=== PATIENT | female | born 1985 | race African-American/Black ===

== ENCOUNTER 2016-06-15 23:42 | Emergency (ER) | payer OTHER ==
[2016-06-15 23:48] VITALS: BP 116/61; PULSE 81; TEMP 98.9; BMI 26.2
[2016-06-16] MEDS ORDERED: valACYclovir HCL 1000 MG TABLET PO ONE ×2 (00:12→00:19)
--- NOTE | 2016-06-16 00:13 | PDOC ---
History of Present Illness - General Chief Complaint: Oral Ulcers Stated Complaint: ORAL ULCERS/BODY ACHE Time Seen by Provider: 06/16/16 00:12 History Source: Patient Past History - Past Medical History Allergies/Adverse Reactions: Allergies Allergy/AdvReac Type Severity Reaction Status Date / Time amoxicillin Allergy Verified 06/15/16 23:46 Home Medications: Ambulatory Orders Valacyclovir HCl [Valtrex] 2,000 mg PO DAILY #2 tablet 06/16/16 Asthma: No Cancer: No Cardiac Disorders: No Diabetes: No HTN: No Seizures: No Thyroid Disease: No - Reproductive History (#): 3 Para: 1 Cervical CA: No Dysfunctional Uterine Bleeding: No Ectopic : No Endometrial CA: No Polycystic Ovaries: No Therapeutic (s) & number: No Tubal Ligation: No Spontaneous : 1 - Immunization History Td Vaccination: Yes TDAP Vaccination: Yes Immunization Up to Date: Yes - Psycho/Social/Smoking Cessation Hx Anxiety: No Suicidal Ideation: No Smoking Status: No Smoking History: Never smoked Have you smoked in the past 12 months: No Number of Cigarettes Smoked Daily: 0 'Breaking Loose' booklet given: 02/02/16 Hx Alcohol Use: No Drug/Substance Use Hx: No Substance Use Type: None, Alcohol Hx Substance Use Treatment: No *Physical Exam - Vital Signs Last Vital Signs Temp Pulse Resp BP Pulse Ox 98.9 F 81 18 116/61 100 06/15/16 23:47 06/15/16 23:47 06/15/16 23:47 06/15/16 23:47 06/15/16 23:47 *DC/Admit/Observation/Transfer Diagnosis at time of Disposition: Herpes zoster Qualifiers: Herpes zoster complications: without complications Qualified Code(s): B02.9 - Zoster without complications - Discharge Dispostion Disposition: HOME Condition at time of disposition: Stable - Prescriptions Prescriptions: Valacyclovir HCl [Valtrex] 2,000 mg PO DAILY #2 tablet - Referrals Referrals: Nancy Hitchcock MD [Primary Care Provider] - - Patient Instructions Printed Discharge Instructions: DI for Cold Sores Additional Instructions: Take the antibiotics as prescribe Increase fluids Follow up with your physician Return to the ER for severe/persistent/worsening symptoms
== END 2016-06-16 00:29 | disposition home or self-care (01) ==
LOC: JERFT 23:42
DX: B00.1 Herpesviral vesicular dermatitis (principal)
CPT/HCPCS: 99281-25

== ENCOUNTER 2016-08-30 12:15 | Emergency (ER) | payer OTHER ==
[2016-08-30 12:21] VITALS: BP 109/71; PULSE 81; TEMP 99.4; BMI 26.9
--- NOTE | 2016-08-30 13:05 | PDOC ---
History of Present Illness - General Chief Complaint: Pain Stated Complaint: NUMBNESS (MOUTH) Time Seen by Provider: 08/30/16 12:56 History Source: Patient Exam Limitations: No Limitations - History of Present Illness Initial Comments: 08/30/16 13:12 Patient came for complaints of swelling, tingling and numbness to upper lip. Thinks is getting a new cold sore Occurred: reports: just prior to arrival Severity: reports: mild Pain Location: reports: face Associated Symptoms (Fall): denies symptoms Past History - Travel Traveled outside of the country in the last 30 days: No Close contact w/someone who was outside of country & ill: No - Past Medical History Allergies/Adverse Reactions: Allergies Allergy/AdvReac Type Severity Reaction Status Date / Time amoxicillin Allergy Verified 08/30/16 12:20 Home Medications: Ambulatory Orders Valacyclovir HCl [Valtrex] 2,000 mg PO DAILY #2 tablet 06/16/16 Valacyclovir HCl [Valtrex] 1,000 mg PO TID #42 tablet 08/30/16 Asthma: No Cancer: No Cardiac Disorders: No Diabetes: No HTN: No Seizures: No Thyroid Disease: No - Reproductive History (#): 3 Para: 1 Cervical CA: No Dysfunctional Uterine Bleeding: No Ectopic : No Endometrial CA: No Polycystic Ovaries: No Therapeutic (s) & number: No Tubal Ligation: No Spontaneous : 1 - Immunization History Td Vaccination: Yes TDAP Vaccination: Yes Immunization Up to Date: Yes - Psycho/Social/Smoking Cessation Hx Anxiety: No Suicidal Ideation: No Smoking Status: No Smoking History: Current every day smoker Have you smoked in the past 12 months: No Number of Cigarettes Smoked Daily: 3 Information on smoking cessation initiated: No 'Breaking Loose' booklet given: 02/02/16 Hx Alcohol Use: Yes (SOCIAL) Drug/Substance Use Hx: No Substance Use Type: None Hx Substance Use Treatment: No Review of Systems - Review of Systems Able to Perform ROS?: Yes Is the patient limited Peruvian proficient: Yes Constitutional: Yes: Symptoms Reported, See HPI, Malaise HEENTM: Yes: Symptoms Reported, See HPI, Mouth Pain Respiratory: No: Symptoms reported All Other Systems: Reviewed and Negative *Physical Exam - Vital Signs Last Vital Signs Temp Pulse Resp BP Pulse Ox 99.4 F 81 20 109/71 99 08/30/16 12:18 08/30/16 12:18 08/30/16 12:18 08/30/16 12:18 08/30/16 12:18 - Physical Exam General Appearance: Yes: Nourished, Appropriately Dressed, Apparent Distress HEENT: positive: PATRICK, Normal ENT Inspection, TMs Normal, Pharynx Normal, Other (swelling with vesicular lesions erupting to upper mid point lip and vermilion border consistent with appearance of herpetic) Neck: positive: Supple, Lymphadenopathy (R), Lymphadenopathy (L) Respiratory/Chest: positive: Lungs Clear Gastrointestinal/Abdominal: positive: Soft Extremity: positive: Normal Capillary Refill, Normal Inspection Integumentary: positive: Normal Color, Dry, Warm 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, Fully Oriented, Alert, Normal Mood/ Affect, Normal Response, Motor Strength 10/09 Progress Note - Progress Note Progress Note: Cold sore, will treat with valacyclovir *DC/Admit/Observation/Transfer Diagnosis at time of Disposition: Herpetic gingivostomatitis - Discharge Dispostion Disposition: HOME Condition at time of disposition: Stable Admit: No - Prescriptions Prescriptions: Valacyclovir HCl [Valtrex] 1,000 mg PO TID #42 tablet - Referrals Referrals: Nancy Hitchcock MD [Primary Care Provider] - - Patient Instructions Printed Discharge Instructions: DI for Cold Sores Additional Instructions: Rest, drink lots of fluids: Teas, water, soups Saltwater gargles/ keep mouth clean and rinse after each meal Tylenol or Motrin for fever and pain Complete all medication as prescribed Valtrex 1 tablet 3 times a day for 5 days then as needed Followup with private physician in one to 2 days as needed Return to emergency department for worsened symptoms, fevers, swelling to face or worsened pain - Post Discharge Activity Work/School Note: Back to Work
== END 2016-08-30 13:20 | disposition home or self-care (01) ==
LOC: JERFT 12:15
DX: B00.2 Herpesviral gingivostomatitis and pharyngotonsillitis (principal)
CPT/HCPCS: 99281-25

== ENCOUNTER 2016-09-01 17:29 | Emergency (ER) | payer OTHER ==
[2016-09-01 17:36] VITALS: BP 105/86; PULSE 93; TEMP 99.1; BMI 26.9
[2016-09-01] MEDS ORDERED: SODIUM CHLORIDE 1,000 ML IV STA (19:01)
--- NOTE | 2016-09-01 19:01 | PDOC ---
History of Present Illness - General History Source: Patient Exam Limitations: No Limitations - History of Present Illness Initial Comments: 09/01/16 20:07 Patient is a 30 year old female with no significant past medical history who presents to the ED with nausea, vomiting, diarrhea and abdominal pain since this AM. Patient reports multiple episodes of vomiting today and 2 episodes of diarrhea. She describes the abdominal pain that is sharp in nature. Patient notes that the pain is not exacerbated by anything. Patient states that she gets depo shots for her control but states that she missed 1 month of the shot. She denies any vaginal bleeding or discharge. She denies any dysuria, hematuria, urgency or hesitancy. <Anna Hamilton - Last Filed: 09/01/16 20:07> <Laura Jaramillo - Last Filed: 09/02/16 00:49> - General Chief Complaint: Pain Stated Complaint: NAUSEA/VOMITING Time Seen by Provider: 09/01/16 18:47 Past History <Anna Hamilton - Last Filed: 09/01/16 20:07> - Past Medical History Asthma: No Cancer: No Cardiac Disorders: No Diabetes: No HTN: No Seizures: No Thyroid Disease: No - Reproductive History (#): 3 Para: 1 Cervical CA: No Dysfunctional Uterine Bleeding: No Ectopic : No Endometrial CA: No Polycystic Ovaries: No Therapeutic (s) & number: No Tubal Ligation: No Spontaneous : 1 - Immunization History Td Vaccination: Yes TDAP Vaccination: Yes Immunization Up to Date: Yes - Psycho/Social/Smoking Cessation Hx Anxiety: No Suicidal Ideation: No Smoking Status: No Smoking History: Never smoked Have you smoked in the past 12 months: No Number of Cigarettes Smoked Daily: 3 Information on smoking cessation initiated: No 'Breaking Loose' booklet given: 02/02/16 Hx Alcohol Use: No Drug/Substance Use Hx: No Substance Use Type: None Hx Substance Use Treatment: No <Laura Jaramillo - Last Filed: 09/02/16 00:49> - Past Medical History Allergies/Adverse Reactions: Allergies Allergy/AdvReac Type Severity Reaction Status Date / Time amoxicillin Allergy Verified 09/01/16 17:36 Home Medications: Ambulatory Orders Medroxyprogesterone Acetate [Depo-Provera] 150 mg IM MONTHLY 09/01/16 Ondansetron [Zofran *Odt*] 4 mg SL TID #10 od.tablet 09/01/16 Ondansetron [Zofran Odt -] 4 mg SL TID PRN #12 od.tablet 09/01/16 Review of Systems - Review of Systems Able to Perform ROS?: Yes Comments:: 09/01/16 20:08 CONSTITUTIONAL: Absent: fever, chills, diaphoresis, generalized weakness, malaise, loss of appetite HEENT: Absent: rhinorrhea, nasal congestion, throat pain, throat swelling, difficulty swallowing, mouth swelling, ear pain, eye pain, visual Changes CARDIOVASCULAR: Absent: chest pain, syncope, palpitations, irregular heart rate, lightheadedness , peripheral edema RESPIRATORY: Absent: cough, shortness of breath, dyspnea with exertion, orthopnea, wheezing, stridor, hemoptysis GASTROINTESTINAL: Present: abdominal pain, nausea , vomiting Absent: abdominal distension, diarrhea, constipation, melena, hematochezia GENITOURINARY: Absent: dysuria, frequency, urgency, hesitancy, hematuria, flank pain, genital pain MUSCULOSKELETAL: Absent: myalgia, arthralgia, joint swelling SKIN: Absent: rash, itching, pallor HEMATOLOGIC/IMMUNOLOGIC: Absent: easy bleeding, easy bruising, lymphadenopathy, frequent infections ENDOCRINE: Absent: unexplained weight gain, unexplained weight loss, heat intolerance, cold intolerance NEUROLOGIC: Absent: headache, focal weakness or paresthesias, dizziness, unsteady gait, seizure, mental status changes, bladder or bowel incontinence PSYCHIATRIC: Absent: anxiety, depression, suicidal or homicidal ideation, hallucinations. <Anna Hamilton - Last Filed: 09/01/16 20:07> *Physical Exam - Vital Signs Last Vital Signs Temp Pulse Resp BP Pulse Ox 99.1 F 93 H 18 105/86 97 09/01/16 17:35 09/01/16 17:35 09/01/16 17:35 09/01/16 17:35 09/01/16 17:35 - Physical Exam Comments: 09/01/16 20:09 GENERAL: Well developed, well nourished. Awake and alert. No acute distress. HEENT: Normocephalic, atraumatic. PERRLA, EOMI. No conjunctival pallor. Sclera are non- icteric. Moist mucous membranes. Oropharynx is clear. NECK: Supple. Full ROM. No JVD. Carotid pulses 2+ and symmetric, without bruits. No thyromegaly. No lymphadenopathy. CARDIOVASCULAR: Regular rate and rhythm. No murmurs, rubs, or gallops. Distal pulses are 2+ and symmetric. PULMONARY: No evidence of respiratory distress. Lungs clear to auscultation bilaterally. No wheezing, rales or rhonchi. ABDOMINAL: +diffuse abdominal tenderenss upon palpation. Soft. Non-distended. No rebound or guarding. No organomegaly. Normoactive bowel sounds. MUSCULOSKELETAL Normal range of motion at all joints. No bony deformities or tenderness. No CVA tenderness. EXTREMITIES: No cyanosis. No clubbing. No edema. No calf tenderness. SKIN: Warm and dry. Normal capillary refill. No rashes. No jaundice. NEUROLOGICAL: Alert, awake, appropriate. Cranial nerves 2-12 intact. No deficits to light touch and temperature in face, upper extremities and lower extremities. No motor deficits in the in face, upper extremities and lower extremities. Normoreflexic in the upper and lower extremities. Normal speech. Toes are down-going bilaterally. Gait is normal without ataxia. PSYCHIATRIC: Cooperative. Good eye contact. Appropriate mood and affect. <Anna Hamilton - Last Filed: 09/01/16 20:07> - Vital Signs Last Vital Signs Temp Pulse Resp BP Pulse Ox 99.1 F 93 H 18 105/86 97 09/01/16 17:35 09/01/16 17:35 09/01/16 17:35 09/01/16 17:35 09/01/16 17:35 <Laura Jaramillo - Last Filed: 09/02/16 00:49> ED Treatment Course - LABORATORY CBC & Chemistry Diagram: 09/01/16 19:30 09/01/16 19:30 - Medications Given in the ED: ED Medications Discontinued Medications Generic Name Dose Route Start Last Admin Trade Name Freq PRN Reason Stop Dose Admin Sodium Chloride 1,000 mls @ 1,000 mls/hr 09/01/16 19:01 09/01/16 19:32 Normal Saline - IV 09/01/16 20:00 1,000 mls/hr ASDIR STA Administration Ondansetron HCl 4 mg 09/01/16 19:33 09/01/16 19:38 Zofran Injection IVPB 09/01/16 19:34 4 mg ONCE ONE Administration <Anna Hamilton - Last Filed: 09/01/16 20:07> - LABORATORY CBC & Chemistry Diagram: 09/01/16 19:30 09/01/16 19:30 <Laura Jaramillo - Last Filed: 09/02/16 00:49> *DC/Admit/Observation/Transfer - Attestations Scribe Attestion: 09/01/16 20:10 Documentation prepared by KIKI Santoyo, acting as medical planner for Laura Jaramillo MD. <Anna Hamilton - Last Filed: 09/01/16 20:07> <Laura Jaramillo - Last Filed: 09/02/16 00:49> Diagnosis at time of Disposition: Nausea and vomiting - Discharge Dispostion Disposition: HOME - Prescriptions Prescriptions: Ondansetron [Zofran *Odt*] 4 mg SL TID #10 od.tablet Ondansetron [Zofran Odt -] 4 mg SL TID PRN #12 od.tablet PRN Reason: Nausea And/Or Vomiting - Referrals Referrals: Nancy Hitchcock MD [Primary Care Provider] -
[2016-09-01] MEDS ORDERED: ONDANSETRON 4 MG/2 ML VIAL IVPB ONE (19:33)
[2016-09-01] MEDS ORDERED: ONDANSETRON 4 MG/2 ML VIAL ONE (19:36)
[2016-09-01 19:50] LABS: BASOPHIL 0.4 % (0-2.0); EOSINOPHIL 1.7 % (0-4.5); MCH 31.8 pg (25.7-33.7); MCHC 33.7 g/dl (32.0-36.0); MEAN CELL VOLUME 94.3 fl (80-96); MEAN PLT VOLUME 7.3 fl (7.5-11.1); NEUTROPHILS 86.5 % (42.8-82.8); PLATELET COUNT 281 K/MM3 (134-434); RDW 12.6 % (11.6-15.6); WHITE BLOOD COUNT 9.3 K/mm3 (4.0-10.0)
[2016-09-01 19:51] LABS: URINE APPEARANCE CLEAR; URINE BILIRUBIN NEGATIVE (NEGATIVE); URINE BLOOD NEGATIVE (NEGATIVE); URINE COLOR YELLOW; URINE GLUCOSE (UA) NEGATIVE (NEGATIVE); URINE KETONE NEGATIVE (NEGATIVE); URINE LEUK ESTERASE NEGATIVE (NEGATIVE); URINE NITRITE NEGATIVE (NEGATIVE); URINE PROTEIN NEGATIVE (NEGATIVE); URINE UROBILINOGEN 2.0 E.U/dl E.U./dl (0.2-1.0)
[2016-09-01 20:26] LABS: ALBUMIN 4.3 g/dl (3.4-5.0); ANION GAP 9 (8-16); BILIRUBIN,TOTAL 0.7 mg/dL (0.2-1.0); CO2 26 mmol/L (21-32); CREATININE 0.8 mg/dL (0.55-1.02); GLUCOSE,RANDOM 81 mg/dL (74-106); SGOT/AST 14 U/L (15-37); SGPT/ALT 26 U/L (12-78); TOT PROT 7.5 g/dl (6.4-8.2)
[2016-09-01 20:27] LABS: ALK PHOS 70 U/L (45-117)
== END 2016-09-01 22:21 | disposition home or self-care (01) ==
LOC: JER 17:29
PROC: 3E033GC Introduction of Other Therapeutic Substance into Peripheral Vein, Percutaneous Approach (ICD-10-PCS; principal; 2016-09-01)
PROC: 3E0337Z Introduction of Electrolytic and Water Balance Substance into Peripheral Vein, Percutaneous Approach (ICD-10-PCS; 2016-09-01)
DX: R11.2 Nausea with vomiting, unspecified (principal); Z72.0 Tobacco use
CPT/HCPCS: 36415; 80053; 81003; 84703; 85025; 96361; 96374; 99282-25

== ENCOUNTER 2018-07-30 22:20 | Emergency (ER) | payer OTHER ==
[2018-07-30 22:34] VITALS: BP 102/51; PULSE 89; TEMP 98.5; BMI 27.9
[2018-07-30] MEDS ORDERED: SODIUM CHLORIDE 1,000 ML IV STA (23:48)
[2018-07-30] MEDS ORDERED: FAMOTIDINE 20 MG/50 ML IVPB 20 MG/50 ML MG IVPB ONE (23:48)
[2018-07-30] MEDS ORDERED: ONDANSETRON 4 MG/2 ML VIAL IVPUSH ONE (23:48)
[2018-07-31] MEDS ORDERED: ONDANSETRON 4 MG/2 ML VIAL ONE (00:43)
[2018-07-31] MEDS ORDERED: FAMOTIDINE 20 MG/50 ML IVPB 20 MG/50 ML MG IVPB ONE (00:43)
[2018-07-31 00:47] LABS: BASO % 0.7 % (0-2.0); HEMATOCRIT 42.4 % (32.4-45.2); HEMOGLOBIN 14.6 GM/dL (10.7-15.3); LYMPH % 16.4 % (8-40); MCH 33.5 pg (25.7-33.7); MCHC 34.3 g/dl (32.0-36.0); MEAN CELL VOLUME 97.7 fl (80-96); MEAN PLT VOLUME 7.1 fl (7.5-11.1); MONO % 4.4 % (3.8-10.2); NEUT % 76.5 % (42.8-82.8); PLATELET COUNT 315 K/MM3 (134-434); RBC 4.34 M/mm3 (3.60-5.2); RDW 12.7 % (11.6-15.6); WHITE BLOOD COUNT 12.1 K/mm3 (4.0-10.0)
--- NOTE | 2018-07-31 00:49 | PDOC ---
History of Present Illness - General Chief Complaint: Respiratory Stated Complaint: VOMITING/COLD SYMOTOMS Time Seen by Provider: 07/30/18 23:38 History Source: Patient Exam Limitations: No Limitations Past History - Past Medical History Allergies/Adverse Reactions: Allergies Allergy/AdvReac Type Severity Reaction Status Date / Time amoxicillin Allergy Verified 07/30/18 22:34 Home Medications: Ambulatory Orders Medroxyprogesterone Acetate [Depo-Provera] 150 mg IM MONTHLY 09/01/16 Ondansetron [Zofran *Odt*] 4 mg SL TID #10 od.tablet 09/01/16 Ondansetron [Zofran Odt -] 4 mg SL TID PRN #12 od.tablet 09/01/16 Asthma: No Cancer: No Cardiac Disorders: No COPD: No Diabetes: No HTN: No Seizures: No Thyroid Disease: No - Reproductive History (#): 3 Para: 1 Cervical CA: No Dysfunctional Uterine Bleeding: No Ectopic : No Endometrial CA: No Polycystic Ovaries: No Therapeutic (s) & number: No Tubal Ligation: No Spontaneous : 1 - Immunization History Td Vaccination: Yes TDAP Vaccination: Yes Immunization Up to Date: Yes - Suicide/Smoking/Psychosocial Hx Smoking Status: No Smoking History: Current every day smoker Have you smoked in the past 12 months: No Number of Cigarettes Smoked Daily: 3 Information on smoking cessation initiated: No 'Breaking Loose' booklet given: 02/02/16 Hx Alcohol Use: No Drug/Substance Use Hx: No Substance Use Type: None Hx Substance Use Treatment: No *Physical Exam - Vital Signs Last Vital Signs Temp Pulse Resp BP Pulse Ox 98.5 F 89 18 102/51 L 97 07/30/18 22:32 07/30/18 22:32 07/30/18 22:32 07/30/18 22:32 07/30/18 22:32 - Physical Exam General Appearance: No: Apparent Distress Respiratory/Chest: positive: Lungs Clear, Normal Breath Sounds. negative: Respiratory Distress Cardiovascular: positive: Regular Rhythm, Regular Rate, S1, S2. negative: Murmur Gastrointestinal/Abdominal: positive: Normal Bowel Sounds, Soft. negative: Tender, Distended, Guarding, Rebound Musculoskeletal: negative: CVA Tenderness Integumentary: positive: Normal Color Neurologic: positive: Alert, Normal Mood/Affect Moderate Sedation - Procedure Monitoring Vital Signs: Procedure Monitoring Vital Signs Temperature 98.5 F 07/30/18 22:32 Pulse Rate 89 07/30/18 22:32 Respiratory Rate 18 07/30/18 22:32 Blood Pressure 102/51 L 07/30/18 22:32 O2 Sat by Pulse Oximetry (%) 97 07/30/18 22:32 ED Treatment Course - LABORATORY CBC & Chemistry Diagram: 07/31/18 00:40 07/31/18 00:40 Medical Decision Making - Medical Decision Making 32 y/o F with no sig pmh presents with NBNB emesis that started yesterday after eating some wings and drinking frozen drink at a restaurant yesterday. Has been unable to keep down liquids or food today. Denies fever, sob, cp, abdominal pain , diarrhea, urinary complaints. Consider gastritis? Plan: Labs, UCG, IVF, Zofran, reassess 07/31/18 00:45 Labs unremarkable other than mild leukocytosis of 12 Patient tolerating liquids here and had no episode of emesis Patient appears well; is requesting to go home Stable for discharge 07/31/18 01:53 *DC/Admit/Observation/Transfer Diagnosis at time of Disposition: Nausea and vomiting - Discharge Dispostion Disposition: HOME Condition at time of disposition: Improved Decision to Admit order: No - Referrals Referrals: Marquez Rodriguez MD [Primary Care Provider] - 2 Days - Patient Instructions Printed Discharge Instructions: DI for Vomiting -- Adult Additional Instructions: Thank you for choosing [facility]. It was a pleasure taking care of you. Your labs were unremarkable Drink at least 2 L of water daily Try light food like bananas, rice, applesauce, toast, plain yogurt, soup until feeling better Follow-up with your PCP in 2-3 days Return to the Emergency Department if your symptoms worsen or persist or have other concerning symptoms. - Post Discharge Activity
[2018-07-31 01:17] LABS: ALBUMIN 4.1 g/dl (3.4-5.0); ALK PHOS 76 U/L (45-117); ANION GAP 8 MMOL/L (8-16); BILIRUBIN,TOTAL 1.1 mg/dL (0.2-1); BLOOD UREA NITROGEN 12 mg/dL (7-18); CALCIUM 8.6 mg/dL (8.5-10.1); CHLORIDE 106 mmol/L (98-107); CO2 24 mmol/L (21-32); CREATININE 0.7 mg/dL (0.55-1.3); GLUCOSE,RANDOM 80 mg/dL (74-106); LIPASE 58 U/L (73-393); POTASSIUM 3.9 mmol/L (3.5-5.1); SGOT/AST 13 U/L (15-37); SGPT/ALT 24 U/L (13-61); SODIUM 137 mmol/L (136-145); TOT PROT 7.4 g/dl (6.4-8.2)
== END 2018-07-31 02:00 | disposition home or self-care (01) ==
LOC: JER 22:20 → JERFT 22:20 → JER 07-31 02:00
DX: R11.2 Nausea with vomiting, unspecified (principal)
CPT/HCPCS: 36415; 80053; 83690; 84703; 85025; 99282-25; J7030

== ENCOUNTER 2019-04-24 11:57 | Emergency (ER) | payer OTHER ==
[2019-04-24 12:39] VITALS: BP 106/62; PULSE 88; TEMP 98.4; BMI 24.0
[2019-04-24] MEDS ORDERED: KETOROLAC TROMETHAMINE 60 MG/2 ML VIAL IM ONE (13:45)
[2019-04-24] MEDS ORDERED: KETOROLAC TROMETHAMINE 60 MG/2 ML VIAL ONE (13:46)
--- NOTE | 2019-04-24 13:46 | PDOC ---
History of Present Illness - General Chief Complaint: Back Pain Stated Complaint: BACK PAIN Time Seen by Provider: 04/24/19 13:24 - History of Present Illness Initial Comments: 04/24/19 13:45 33-year-old female without comorbidities presents for evaluation of lower back pain with posterior lateral left leg radicular symptoms. She states the pain started this morning when she lifted a heavy milk crate at work today. No systemic symptoms loss of bowel bladder function or saddle paresthesias. Past History - Past Medical History Allergies/Adverse Reactions: Allergies Allergy/AdvReac Type Severity Reaction Status Date / Time amoxicillin Allergy Verified 04/24/19 13:40 Home Medications: Ambulatory Orders Medroxyprogesterone Acetate [Depo-Provera] 150 mg IM MONTHLY 09/01/16 Ondansetron [Zofran *Odt*] 4 mg SL TID #10 od.tablet 09/01/16 Ondansetron [Zofran Odt -] 4 mg SL TID PRN #12 od.tablet 09/01/16 Cyclobenzaprine HCl [Flexeril 10 mg] 10 mg PO HS PRN #10 tablet 04/24/19 Ibuprofen [Motrin -] 600 mg PO TID #30 tablet 04/24/19 Asthma: No Cancer: No Cardiac Disorders: No COPD: No Diabetes: No HTN: No Seizures: No Thyroid Disease: No - Reproductive History (#): 3 Para: 1 Cervical CA: No Dysfunctional Uterine Bleeding: No Ectopic : No Endometrial CA: No Polycystic Ovaries: No Therapeutic (s) & number: No Tubal Ligation: No Spontaneous : 1 - Immunization History Td Vaccination: Yes TDAP Vaccination: Yes Immunization Up to Date: Yes - Psycho Social/Smoking Cessation Hx Smoking Status: No Smoking History: Never smoked Have you smoked in the past 12 months: No Number of Cigarettes Smoked Daily: 3 Information on smoking cessation initiated: No 'Breaking Loose' booklet given: 02/02/16 Hx Alcohol Use: No Drug/Substance Use Hx: No Substance Use Type: None Hx Substance Use Treatment: No Review of Systems - Review of Systems Musculoskeletal: Yes: Back Pain *Physical Exam - Vital Signs Last Vital Signs Temp Pulse Resp BP Pulse Ox 98.4 F 88 18 106/62 100 04/24/19 12:36 04/24/19 12:36 04/24/19 12:36 04/24/19 12:36 04/24/19 12:36 - Physical Exam Comments: 04/24/19 13:47 Lumbar spine skin color temperature normal range of motion is limited. No midline tenderness. Moderate right and left paralumbar musculature spasm and tenderness 5 out of 5 strength bilateral lower extremities without gross sensorimotor deficits neurovascular intact. Medical Decision Making - Medical Decision Making 04/24/19 13:47 Lumbar spine strain. Toradol in the ER Motrin and Flexeril at home follow-up with neurosurgery patient assures me there is no chance of . Give her Toradol in the ER. Discharge - Discharge Information Problems reviewed: Yes Clinical Impression/Diagnosis: Lumbar spine strain Condition: Stable Disposition: HOME - Admission No - Follow up/Referral Referrals: Henny Zavala MD [Primary Care Provider] - Laz Swann MD, FAANS [Staff Physician] - - Patient Discharge Instructions Patient Printed Discharge Instructions: Low Back Pain, DI for Low Back Pain Additional Instructions: Do not take the Motrin today. You may start the Motrin tomorrow at this time. You were given an injection of a long-acting anti-inflammatory which should help your pain until tomorrow. Taking the Motrin prior to this time will upset your stomach. Return to the emergency room for worsening symptoms and without fail follow-up with neurosurgery in 1 to 2 days for further evaluation and treatment options. The muscle relaxers 1 tablet before bedtime will make you sleepy this will help with your spasm. If you need additional medication you may take Tylenol as directed. - Post Discharge Activity Work/Back to School Note: Back to Work
== END 2019-04-24 14:09 | disposition home or self-care (01) ==
LOC: JERFT 11:57
PROC: 3E0233Z Introduction of Anti-inflammatory into Muscle, Percutaneous Approach (ICD-10-PCS; principal; 2019-04-24)
DX: S39.012A Strain of muscle, fascia and tendon of lower back, initial encounter (principal); X50.0XXA Overexertion from strenuous movement or load, initial encounter; Y93.89 Activity, other specified; Y92.89 Other specified places as the place of occurrence of the external cause; Y99.0 Civilian activity done for income or pay; Z88.0 Allergy status to penicillin
CPT/HCPCS: 99281-25

== ENCOUNTER 2021-12-22 18:09 | Emergency (ER) | payer OTHER ==
[2021-12-22 18:31] VITALS: BP 102/71; PULSE 75; TEMP 98.4; BMI 27.8
[2021-12-22] MEDS ORDERED: diazePAM 5 MG TABLET PO ONE (19:47)
[2021-12-22] MEDS ORDERED: KETOROLAC TROMETHAMINE 30 MG/1 ML VIAL IM ONE (19:47)
[2021-12-22] MEDS ORDERED: ACETAMINOPHEN 500 MG TABLET (FP) PO ONE (19:47)
[2021-12-22] MEDS ORDERED: diazePAM 5 MG TABLET ONE (19:56)
[2021-12-22] MEDS ORDERED: ACETAMINOPHEN 500 MG TABLET (FP) ONE (19:57)
[2021-12-22] MEDS ORDERED: KETOROLAC TROMETHAMINE 30 MG/1 ML VIAL ONE (19:57)
== END 2021-12-22 21:10 | disposition home or self-care (01) ==
LOC: JERFT 18:09 → JER 18:09 → JERFT 21:10
PROC: 3E0233Z Introduction of Anti-inflammatory into Muscle, Percutaneous Approach (ICD-10-PCS; principal; 2021-12-22)
DX: S96.919A Strain of unspecified muscle and tendon at ankle and foot level, unspecified foot, initial encounter (principal); W01.0XXA Fall on same level from slipping, tripping and stumbling without subsequent striking against object, initial encounter; Y93.02 Activity, running
CPT/HCPCS: 73610-TC-LT-FY; 73610-TC-RT-FY; 99284-25

== ENCOUNTER 2023-12-27 17:28 | Emergency (ER) | payer OTHER ==
[2023-12-27 17:39] VITALS: BP 100/77; PULSE 67; RESP 18; TEMP 98.8; BMI 27.1
[2023-12-27] MEDS ORDERED: MAG HYDROX/AL HYDROX/SIMETH 30 ML UNIT-DOSE CUP ONE (20:47)
[2023-12-27] MEDS: MAG HYDROX/AL HYDROX/SIMETH 30 ML UNIT-DOSE CUP PO ONE (20:49)
== END 2023-12-27 20:50 | disposition home or self-care (01) ==
LOC: JER 17:28
DX: R07.89 Other chest pain (principal); K21.9 Gastro-esophageal reflux disease without esophagitis; R06.02 Shortness of breath; R11.10 Vomiting, unspecified
CPT/HCPCS: 71046-TC-FY; 93005; 93010; 93308; 99284-25

== ENCOUNTER 2024-03-28 15:45 | Emergency (ER) | payer OTHER ==
[2024-03-28 16:39] VITALS: TEMP 98.6; BMI 24.9
[2024-03-28] MEDS ORDERED: ACETAMINOPHEN 325 MG TABLET (FP) ONE (17:52)
[2024-03-28] MEDS ORDERED: METHOCARBAMOL 500 MG TABLET ONE (17:53)
[2024-03-28] MEDS: ACETAMINOPHEN 500 MG TABLET (FP) PO ONE (18:09)
[2024-03-28] MEDS: METHOCARBAMOL 500 MG TABLET PO ONE (18:09)
[2024-03-28 18:23] LABS: EPI CELLS 9 /uL (0-25.1); HYALINE CASTS 0 /uL (0-3.1); URINE APPEARANCE CLOUDY; URINE BACTERIA >9,000 /uL (0-1359); URINE BILIRUBIN NEGATIVE (NEGATIVE); URINE COLOR YELLOW; URINE GLUCOSE (UA) NEGATIVE (NEGATIVE); URINE KETONE TRACE (NEGATIVE); URINE LEUK ESTERASE 3+ (NEGATIVE); URINE NITRITE POSITIVE (NEGATIVE); URINE PROTEIN 2+ (NEGATIVE); URINE RBC 55 /uL (0-23.9); URINE UROBILINOGEN 0.2 mg/dL (0.2-1.0); URINE WBC 2555 /uL (0-25.8)
[2024-03-28] MEDS ORDERED: KETOROLAC TROMETHAMINE 15 MG/ML VIAL ONE (19:29)
[2024-03-28] MEDS ORDERED: CEFTRIAXONE 1 GM/50 ML BAG ONE (19:29)
[2024-03-28 19:33] LABS: HIV INTERPRETATION NEGATIVE (NEGATIVE)
[2024-03-28] MEDS: KETOROLAC TROMETHAMINE 15 MG/ML VIAL IVPUSH ONE (19:54)
[2024-03-28 20:04] LABS: EOS % 3.3 % (0-4.5); HEMATOCRIT 36.1 % (32.4-45.2); LYMPH % 28.6 % (8-40); MCH 32.3 pg (25.7-33.7); MCHC 33.1 g/dl (32.0-36.0); MEAN CELL VOLUME 97.6 fl (80-96); MEAN PLT VOLUME 6.8 fl (7.5-11.1); MONO % 6.9 % (3.8-10.2); NEUT % 60.2 % (42.8-82.8); PLATELET COUNT 308 10^3/uL (134-434); RDW 13.5 % (11.6-15.6)
[2024-03-28 20:34] LABS: POTASSIUM 3.3 mmol/L (3.5-5.1)
[2024-03-28 20:36] LABS: CALCIUM 9.4 mg/dL (8.5-10.1)
[2024-03-28 20:37] LABS: BLOOD UREA NITROGEN 7.2 mg/dL (7-18)
[2024-03-28 20:40] LABS: CREATININE 0.9 mg/dL (0.55-1.3)
[2024-03-28 20:41] LABS: BILIRUBIN,TOTAL 1.2 mg/dL (0.2-1); TOT PROT 6.9 g/dl (6.4-8.2)
[2024-03-28 20:55] VITALS: BP 111/75; PULSE 71; RESP 16
== END 2024-03-28 21:53 | disposition home or self-care (01) ==
LOC: JER 15:45
DX: R10.9 Unspecified abdominal pain (principal); N39.0 Urinary tract infection, site not specified; M54.50 Low back pain, unspecified; R11.0 Nausea
CPT/HCPCS: 36415; 74176-TC; 80053; 81003; 84703; 85025; 86780; 86803; 87086; 87186; 87389; 87491; 87591; 99284-25

== ENCOUNTER 2024-12-27 00:03 | Emergency (ER) | payer OTHER ==
[2024-12-27 00:11] VITALS: BP 112/59; PULSE 84; RESP 20; TEMP 98.2; BMI 26.2
[2024-12-27] MEDS ORDERED: ALBUTEROL SO4 2.5/IPRATROPIUM 0.5 INH SOL 3 ML VIAL.NEB. NEB ONE (00:13)
[2024-12-27] MEDS ORDERED: predniSONE 20 MG TABLET (UD) ONE (01:02)
[2024-12-27] MEDS ORDERED: ALBUTEROL SO4 HFA INHALER IH ONE (01:02)
[2024-12-27] MEDS: predniSONE 20 MG TABLET (UD) PO ONE (01:06)
[2024-12-27] MEDS: ALBUTEROL SO4 HFA INHALER IH ONE (01:07)
== END 2024-12-27 01:10 | disposition home or self-care (01) ==
LOC: JER 00:03
DX: R07.89 Other chest pain (principal); R06.2 Wheezing; R05.9 Cough, unspecified; T54.91XA Toxic effect of unspecified corrosive substance, accidental (unintentional), initial encounter
CPT/HCPCS: 99283-25